=== PATIENT | female | born 1945 | race Two or more races ===

== ENCOUNTER 2021-11-14 11:12 | Emergency (ER) | payer OTHER ==
[~2021-11-14] VITALS: Ht 165.1 cm; Wt 77.1 kg
[2021-11-14] MEDS ORDERED: METFORMIN HCL500 M1 PO (11:37)
[2021-11-14] MEDS ORDERED: SYNTHROID137 MCG PO (11:37)
[2021-11-14] MEDS ORDERED: IRBESARTAN-HCT1 EAC1 PO (11:37)
[2021-11-14] MEDS ORDERED: ATORVASTATIN CA40 MG PO (11:38)
[2021-11-14] MEDS ORDERED: NORFLEX100MG PO (13:25)
[2021-11-14] MEDS ORDERED: KETO10TA2 PO (13:25)
== END 2021-11-14 13:42 | disposition home or self-care (01) ==
LOC: ER 11:12
DX: M54.50 Low back pain, unspecified (principal); M19.91 Primary osteoarthritis, unspecified site

== ENCOUNTER 2024-02-28 11:21 | Emergency (ER) | payer OTHER ==
[~2024-02-28] VITALS: Ht 162.6 cm; Wt 74.8 kg
[~2024-02-28 11:21] MED LIST: ATORVASTATIN CA40 MG PO; IRBESARTAN-HCT1 EAC1 PO; KETO10TA2 PO; METFORMIN HCL500 M1 PO; NORFLEX100MG PO; SYNTHROID137 MCG PO
[2024-02-28] MEDS ORDERED: MEPERIDINE HCL/PF 50 MG/ML VIAL IM STA (13:36)
[2024-02-28] MEDS ORDERED: PROMETHAZINE HCL 50 MG/ML AMPUL IM STA (13:37)
[2024-02-28 14:32] LABS: HEMATOCRIT 35.2 % (36.0-45.00); HEMOGLOBIN 12.2 g/dL (12.0-15.00); MEAN CELL VOLUME 91.1 fL (80.00-100.00); MEAN CORPUSCULAR HEMOGLOBIN 31.6 pg (27.00-32.0); MEAN CORPUSCULAR HGB CONC 34.6 g/dl (32.0-36.0); RED BLOOD COUNT 3.87 M/uL (4.00-6.00); RED CELL DISTRIBUTION WIDTH 13.8 % (11.5-14.5)
[2024-02-28 14:47] LABS: PH,URINE 7.5 (5.0-8.0); URINE APPEARANCE Clear; URINE BILIRRUBIN Negative (NEGATIVE); URINE BLOOD Small; URINE COLOR Yellow; URINE GLUCOSE Negative (NEGATIVE); URINE KETONE Negative (NEGATIVE); URINE LEUKOCYTE Negative; URINE NITRATE Negative; URINE PROTEIN 30 (NEGATIVE); URINE UROBILINOGEN 0.2 E.U./dl
[2024-02-28 14:51] LABS: URINE EPITHELIAL CELLS 3.1 uL (0.0-38.8); URINE RBC 61.2 uL (0.0-20.8)
[2024-02-28 14:58] LABS: PLATELET COUNT 140 K/uL (150-450)
[2024-02-28 15:34] LABS: CALCIUM 9.7 mg/dL (8.5-10.1); CREATININE SERUM 1.35 mg/dL (0.55-1.02); GFR 37.93; POTASSIUM 4.08 mEq/L (3.5-5.1)
[2024-02-28] MEDS ORDERED: PEPCID AC20 MG PO (17:40)
[2024-02-28] MEDS ORDERED: BACTRIM DS TAB1 EACH PO (17:40)
[2024-02-28] MEDS ORDERED: DOLOGESIC 500-1 EACH PO (17:40)
[2024-02-28] MEDS ORDERED: TAMS0.4C PO (17:40)
== END 2024-02-28 17:46 | disposition home or self-care (01) ==
LOC: ER 11:21
PROVIDERS: General Practice
DX: N23 Unspecified renal colic (principal); I10 Essential (primary) hypertension; E11.9 Type 2 diabetes mellitus without complications; Z79.84 Long term (current) use of oral hypoglycemic drugs
CPT/HCPCS: 36415; 74176; 96372; 99284; J2550; J3490

== ENCOUNTER → 2024-04-09 13:24 | Outpatient (CLI) | payer OTHER ==
[~2024-04-09 13:24] MED LIST changes: +BACTRIM DS TAB1 EACH PO; +DOLOGESIC 500-1 EACH PO; +PEPCID AC20 MG PO; +TAMS0.4C PO
== END | disposition home or self-care (01) ==
LOC: EKG 13:24
PROVIDERS: ATTEND Urology
DX: N20.0 Calculus of kidney (principal); N20.1 Calculus of ureter; I10 Essential (primary) hypertension